=== PATIENT | female | born 1975 | race Caucasian/White ===

== ENCOUNTER 2023-04-16 13:04 | Emergency (ER) | payer OTHER ==
[2023-04-16] MEDS ORDERED: TORAdol 30 mg Injection IM ONE (13:25)
[2023-04-16 13:30] VITALS: BP 105/77; PULSE 91; TEMP 97.8
[2023-04-16] MEDS ORDERED: TORAdol 30 mg Injection ONE ×2 (13:30→13:34)
--- NOTE | 2023-04-16 13:31 | ERPHSYRPT ---
- History of Present Illness Time Seen by Provider: 04/16/23 13:29 Source: patient Exam Limitations: no limitations Physician History: Patient is a 47-year-old female presents to our emergency department to replace her post molded sugar-tong. Patient had ORIF of her right ankle secondary to a distal fibular fracture on April 09. Patient states she stepped into a puddle of water and soaked her postmold sugar-tong splint. Patient removed her splint and is here requesting that we place another splint to replace the 1 she removed. Patient denies trauma. No falls no injuries no other complaints. Patient voices no other complaints or concerns at this time. Portions of this note were created with voice recognition technology. There may be grammatical, spelling, punctuation or sound alike errors Timing/Duration: today Severity: moderate Modifying Factors: Improves With: nothing Associated Symptoms: denies symptoms Allergies/Adverse Reactions: No Known Drug Allergies Allergy (Verified 04/16/23 13:30) - Review of Systems Constitutional: No Symptoms, No Fever, No Chills Eyes: No Symptoms Ears, Nose, & Throat: No Symptoms Respiratory: No Symptoms, No Cough, No Dyspnea Cardiac: No Symptoms, No Chest Pain, No Edema, No Syncope Abdominal/Gastrointestinal: No Symptoms, No Abdominal Pain, No Nausea, No Vomiting, No Diarrhea Genitourinary Symptoms: No Symptoms, No Dysuria Musculoskeletal: No Symptoms, No Back Pain, No Neck Pain Skin: No Symptoms, No Rash Neurological: No Symptoms, No Dizziness, No Focal Weakness, No Sensory Changes Psychological: No Symptoms Endocrine: No Symptoms Hematologic/Lymphatic: No Symptoms Immunological/Allergic: No Symptoms All Other Systems: Reviewed and Negative - Physical Exam General Appearance: no apparent distress, alert Eye Exam: PERRL/EOMI, eyes nml inspection Neck Exam: normal inspection, full range of motion Respiratory Exam: normal breath sounds, airway intact, No respiratory distress Cardiovascular Exam: regular rate/rhythm, normal heart sounds, normal peripheral pulses Gastrointestinal/Abdomen Exam: soft, normal bowel sounds, No tenderness, No mass Back Exam: normal inspection, normal range of motion, No CVA tenderness, No vertebral tenderness Extremity Exam: normal inspection, normal range of motion, pelvis stable Neurologic Exam: alert, oriented x 3, cooperative, normal mood/affect, nml cerebellar function, nml station & gait, sensation nml, No motor deficits Skin Exam: normal color, warm, dry, other (The incision at the lateral aspect of the right ankle appears to be healing well.), No rash Lymphatic Exam: No adenopathy SpO2 Interpretation: normal SpO2: 96 O2 Delivery: Room Air - Course Nursing assessment & vital signs reviewed: Yes Ordered Tests: Medication Summary Discontinued Medications Generic Name Dose Route Start Last Admin Trade Name Freq PRN Reason Stop Dose Admin Ketorolac Tromethamine 30 mg 04/16/23 13:25 Ketorolac Tromethamine 30 Mg/Ml Inj IM 04/16/23 13:26 STAT ONE - Progress Progress: improved Progress Note: 47-year-old female presents to our ED for replacement postmold sugar-tong splint. Patient removed her splint after she wet it while stepping in a puddle of water. We replaced patient's postmold sugar-tong splint. Patient neurovascular intact distally pre and post application of splint. Patient received IM Toradol for pain control. No indication for further evaluation or workup will discharge home. Patient agrees to follow-up with her primary care doctor/surgeon within 48 hours for reevaluation. Portions of this note were created with voice recognition technology. There may be grammatical, spelling, punctuation or sound alike errors Complexity problem addressed is low acute uncomplicated No critical care time Complex of data reviewed and analyzed is none. No specialized testing ordered. Diagnosis made based on history and physical examination. Risk of complication and or risk of morbidity/mortality of patient management is low Vital stable. Time spent to discharge patient is approximately 10 minutes. Plan of care established for shared decision making. No social determinants of health present impede follow-up. Portions of this note were created with voice recognition technology. There may be grammatical, spelling, punctuation or sound alike errors 04/16/23 13:34 Counseled pt/family regarding: diagnosis, need for follow-up - Departure Departure Disposition: Home Clinical Impression: Post surgical complication, extremity splint application Condition: Stable Critical Care Time: No Referrals: TONEY ROBLES [Primary Care Provider] - Follow up/PCP as directed Additional Instructions: Discharge/Care Plan MOISES DENNIS was seen on 04/16/23 in the Emergency Room. The patient was counseled regarding Diagnosis,Lab results, Imaging studies, need for follow up and when to return to the Emergency Room. Prescriptions given: Discharge Note I have spoken with the patient and/or caregivers. I have explained the patient's condition, diagnosis and treatment plan based on the information available to me at this time. I have answered the patient's and/or caregiver's questions and addressed any concerns. The patient and/or caregivers have as good understanding of the patient's diagnosis, condition and treatment plan as can be expected at this point. The vital signs have been stable. The patient's condition is stable and appropriate for discharge from the emergency department. The patient will pursue further outpatient evaluation with the primary care physician or other designated or consulting physician as outlined in the discharge instructions. The patient and/or caregivers are agreeable to this plan of care and follow-up instructions have been explained in detail. The patient and/or caregivers have received these instruction. The patient/and or caregivers are aware that any significant change in condition or worsening of symptoms should prompt an immediate return to this or the closest emergency department or call 911.
[2023-04-16 13:37] VITALS: O2SAT 96
== END 2023-04-16 14:22 | disposition home or self-care (01) ==
LOC: ED 13:04
DX: T81.89XA Other complications of procedures, not elsewhere classified, initial encounter (principal); Z47.89 Encounter for other orthopedic aftercare
CPT/HCPCS: 29515; 96372; 99283; J1885